=== PATIENT | male | born 1995 | race Caucasian/White ===

== ENCOUNTER 2018-09-06 15:16 | Emergency (ER) | payer OTHER ==
[~2018-09-06] VITALS: Ht 160 cm; Wt 69.8 kg
[2018-09-06 16:14] LABS: URINE BILIRUBIN NEGATIVE (Negative); URINE BLOOD NEGATIVE (Negative); URINE CLARITY CLEAR; URINE COLOR YELLOW; URINE GLUCOSE-RANDOM NEGATIVE (Negative); URINE KETONES TRACE (Negative); URINE LEUKOCYTES-REFLEX NEGATIVE (Negative); URINE NITRITE-REFLEX NEGATIVE (Negative); URINE PROTEIN NEGATIVE (Negative)
[2018-09-06] MEDS ORDERED: LIDOCAINE VISC100 ML TOP (16:21)
[2018-09-06] MEDS ORDERED: ACYCLOVIR 400400 MG PO (16:21)
[2018-09-06] MEDS ORDERED: ACETAMINOPHEN-1 EAC1 PO (16:23)
[2018-09-06 17:05] VITALS: BP 114/71
== END 2018-09-06 17:06 | disposition home or self-care (01) ==
LOC: M.ERS 15:16
PROVIDERS: Physician Assistant
DX: A60.02 Herpesviral infection of other male genital organs (principal); F17.210 Nicotine dependence, cigarettes, uncomplicated; Z86.73 Personal history of transient ischemic attack (TIA), and cerebral infarction without residual deficits

== ENCOUNTER 2019-01-04 08:16 | Emergency (ER) | payer OTHER ==
[~2019-01-04] VITALS: Ht 160 cm; Wt 72.6 kg
[~2019-01-04 08:16] MED LIST: ACETAMINOPHEN-1 EAC1 PO; ACYCLOVIR 400400 MG PO; LIDOCAINE VISC100 ML TOP
[2019-01-04] MEDS ORDERED: GENTAK5 ML INTRAOCULR (09:07)
[2019-01-04] MEDS ORDERED: NORCO 5-325 TA1 EAC1 PO (09:07)
[2019-01-04] MEDS ORDERED: ERYTHROMYCIN E3.5 G2 INTRAOCULR (09:23)
[2019-01-04 09:40] VITALS: BP 127/81
== END 2019-01-04 09:43 | disposition home or self-care (01) ==
LOC: M.ERS 08:16
DX: T15.02XA Foreign body in cornea, left eye, initial encounter (principal); X58.XXXA Exposure to other specified factors, initial encounter; Y93.9 Activity, unspecified; Y92.89 Other specified places as the place of occurrence of the external cause; Y99.8 Other external cause status

== ENCOUNTER 2019-03-25 14:26 | Emergency (ER) | payer OTHER ==
[~2019-03-25] VITALS: Ht 160 cm; Wt 69.4 kg
[~2019-03-25 14:26] MED LIST changes: +ERYTHROMYCIN E3.5 G2 INTRAOCULR; +GENTAK5 ML INTRAOCULR; +NORCO 5-325 TA1 EAC1 PO
[2019-03-25 15:18] LABS: INFLUENZA A ANTIGEN Negative (Negative); INFLUENZA B ANTIGEN Negative (Negative)
[2019-03-25] MEDS ORDERED: TRAMADOL 50 MG50 MG PO (15:19)
[2019-03-25] MEDS ORDERED: AMOXICILLIN 50500 MG PO (15:19)
[2019-03-25] MEDS ORDERED: MUCINEX600 MG PO (15:19)
[2019-03-25 15:31] VITALS: BP 122/82
== END 2019-03-25 15:34 | disposition home or self-care (01) ==
LOC: M.ERS 14:26
PROVIDERS: Emergency Medicine Emergency Medical Services
DX: H66.92 Otitis media, unspecified, left ear (principal); Z86.73 Personal history of transient ischemic attack (TIA), and cerebral infarction without residual deficits

== ENCOUNTER 2019-11-28 19:12 | Emergency (ER) | payer OTHER | END 2019-11-28 19:35 | disposition home or self-care (01) | LOC: M.ERS 19:12 | DX: K02.9 Dental caries, unspecified (principal) ==

== ENCOUNTER 2020-01-04 16:39 | Emergency (ER) | payer OTHER ==
[~2020-01-04] VITALS: Ht 160 cm; Wt 72.6 kg
[~2020-01-04 16:39] MED LIST changes: +AMOXICILLIN 50500 MG PO; +MUCINEX600 MG PO; +NAPROSYN500 MG PO; +PENICILLIN V P500 MG PO; +TRAMADOL 50 MG50 MG PO; +TYLENOL WITH CO1 TA1 PO
[2020-01-04] MEDS ORDERED: AUGMENTIN 875-1 EACH PO (18:40)
[2020-01-04] MEDS ORDERED: NORCO 5-325 TA1 EAC2 PO (18:40)
[2020-01-04 19:02] VITALS: BP 132/68
== END 2020-01-04 19:02 | disposition home or self-care (01) ==
LOC: M.ERS 16:39
DX: S02.652A Fracture of angle of left mandible, initial encounter for closed fracture (principal); H57.11 Ocular pain, right eye; Y04.0XXA Assault by unarmed brawl or fight, initial encounter; Y93.89 Activity, other specified; Y92.89 Other specified places as the place of occurrence of the external cause; Y99.8 Other external cause status

== ENCOUNTER 2020-01-06 20:09 | Emergency (ER) | payer OTHER ==
[~2020-01-06] VITALS: Ht 160 cm; Wt 72.6 kg
[~2020-01-06 20:09] MED LIST changes: +AUGMENTIN 875-1 EACH PO; +NORCO 5-325 TA1 EAC2 PO
[2020-01-06] MEDS ORDERED: ZOFRAN4 MG PO (21:11)
[2020-01-06 21:21] VITALS: BP 124/70
== END 2020-01-06 21:22 | disposition home or self-care (01) ==
LOC: M.ERS 20:09
DX: S02.652A Fracture of angle of left mandible, initial encounter for closed fracture (principal); F07.81 Postconcussional syndrome; Y04.0XXA Assault by unarmed brawl or fight, initial encounter; Y93.89 Activity, other specified; Y92.89 Other specified places as the place of occurrence of the external cause; Y99.0 Civilian activity done for income or pay

== ENCOUNTER 2021-05-24 12:53 | Emergency (ER) | payer OTHER ==
[~2021-05-24] VITALS: Ht 160 cm; Wt 68.0 kg
[~2021-05-24 12:53] MED LIST changes: +ZOFRAN4 MG PO
[2021-05-24 16:30] VITALS: BP 0/0
== END 2021-05-24 16:30 | disposition home or self-care (01) ==
LOC: M.ERS 12:53
DX: R10.13 Epigastric pain (principal); R11.2 Nausea with vomiting, unspecified; R51.9 Headache, unspecified; Z53.21 Procedure and treatment not carried out due to patient leaving prior to being seen by health care provider